=== PATIENT | female | born 1930 | race Caucasian/White ===

== ENCOUNTER 2016-12-25 02:51 | Emergency (ER) | payer OTHER ==
[2016-12-25 02:58] VITALS: BP 151/77; RESP 20; TEMP 97.6
[2016-12-25] MEDS ORDERED: ACET500C PO (03:15)
[2016-12-25] MEDS ORDERED: VITA200013 (03:17)
[2016-12-25] MEDS ORDERED: BUSP5TAB PO (03:17)
[2016-12-25] MEDS ORDERED: QUET1TAB7 PO (03:17)
[2016-12-25] MEDS ORDERED: AMLO2.5T PO (03:17)
[2016-12-25] MEDS ORDERED: TRAZ50TA12 PO (03:17)
[2016-12-25] MEDS ORDERED: LIDOCAINE HCL 1% PF 30 ML VIAL INFIL ONE (03:30)
--- NOTE | 2016-12-25 03:41 | PD ---
HPI Chief Complaint: Fall Time Seen by Provider: 03:27 Travel History International Travel<30 days: No Contact w/Intl Traveler<30days: No Traveled to known affect area: No History of Present Illness HPI 86-year-old female presents to the emergency department from [facility] [place] [facility] is caregiver status post witnessed fall just prior to arrival to the emergency department. Patient was reportedly in her apartment with her and had a slip and fall. There was reportedly no loss of consciousness. Caregiver at bedside and reports that they heard her fall and attended her immediately. Patient was noted to have a laceration to the posterior occiput scalp. Patient also complains of hand pain. Patient has deformity of the right elbow that has been present for a long time according to the caregiver. Review of medical records indicates patient was seen March 2016 for an elbow fracture. Patient takes no blood thinning medications reportedly. Patient has history of dementia and does not provide helpful history however patient does complain of headache and right hand pain and left knee pain. Patient denies chest pain, neck pain, abdominal pain, pelvic pain, or other extremity pain. Patient does report her right elbow has had chronic deformity. Pain is estimated as 5/10 in intensity. PFSH Past Medical History Narrative Medical Arthritis dementia diminished hearing hypertension appendectomy cholecystectomy hysterectomy back surgery no tobacco use no alcohol use nursing notes reviewed Arthritis: Yes Diminished Hearing: Yes ([place]) Headaches: Yes Immunizations Current: Yes Tetanus Vaccination: Unknown Influenza Vaccination: No ?: Not Menopausal: Yes Past Surgical History Appendectomy: Yes Cholecystectomy: Yes Gynecologic Surgery: Yes (HYSTERECTOMY) Hysterectomy: Yes Tonsillectomy: Yes Other Surgery: Yes (BACK SURGERY) Social History Alcohol Use: No Tobacco Use: No (quit long ago cigs) Substance Use: No Allergies-Medications (Allergen,Severity, Reaction): Coded Allergies: Sulfa (Verified Allergy, Unknown, 12/25/16) Reported Meds & Prescriptions Reported Meds & Active Scripts Active Pyridium (Phenazopyridine HCl) 100 Mg Tab 100 Mg PO Q8H PRN Macrobid (Nitrofurantoin Monoh/Nitrofur Macro) 100 Mg Cap 100 Mg PO BID 10 Days Reported Quetiapine (Quetiapine Fumarate) 25 Mg Tab 25 Mg PO BID Vitamin D (Cholecalciferol) 2,000 Unit Cap Trazodone (Trazodone HCl) 50 Mg Tab 50 Mg PO HS Buspirone (Buspirone HCl) 5 Mg Tab 5 Mg PO BID Amlodipine (Amlodipine Besylate) 2.5 Mg Tab 2.5 Mg PO DAILY Acetaminophen 500 Mg Cap 500 Mg PO DAILY PRN Review of Systems ROS Limitations: Poor Historian, Other: (caregiver) Except as stated in HPI: all other systems reviewed are Neg General / Constitutional: No: Fever Cardiovascular: No: Chest Pain or Discomfort Respiratory: No: Shortness of Breath Gastrointestinal: No: Abdominal Pain Genitourinary: No: Flank Pain Musculoskeletal: Positive: Pain (left knee pain earlier on Monday afternoon - - used wheelchair to assist with ambulation at that time per caregiver and right elbow deformity is a chronic condition and appears unchanged) Neurologic: No: Weakness Hematologic/Lymphatic: No: Easy Bruising Physical Exam Narrative GENERAL: Well-developed elderly female in no acute distress no respiratory distress appears mildly anxious. SKIN: Warm and dry. HEAD: Atraumatic. Normocephalic. Right posterior occiput 5 cm linear scalp laceration without soft tissue swelling or bony abnormality to palpation. EYES: Pupils equal and round. Extraocular muscles intact. No scleral icterus. No injection or drainage. ENT: No nasal bleeding or discharge. Mucous membranes pink and moist. NECK: Trachea midline. No JVD. Nontender to direct palpation along the bony cervical spine and no bony step-off. CARDIOVASCULAR: Regular rate and rhythm. Chest wall: Nontender to direct palpation no crepitus no point tenderness. RESPIRATORY: No accessory muscle use. Clear to auscultation. Breath sounds equal bilaterally. GASTROINTESTINAL: Abdomen soft, non-tender, nondistended. Hepatic and splenic margins not palpable. MUSCULOSKELETAL: Extremities without clubbing, cyanosis, or edema. No obvious deformities except obvious deformity of the right elbow reportedly old and non- tender to palpation or with range of motion limited at attempted end range of motion by deformity, bruising to the right hand subacute bruise to the left knee extremities demonstrate full range of motion except for right elbow secondary to chronic deformity distally radial and dorsalis pedis pulses are 2+ to palpation.. NEUROLOGICAL: Awake and alert. No obvious cranial nerve deficits. Motor grossly within normal limits. Five out of 5 muscle strength in the arms and legs. Normal speech. Data Data Last Documented VS Vital Signs Date Time Temp Pulse Resp B/P Pulse Ox O2 Delivery O2 Flow Rate FiO2 12/25/16 02:58 97.6 20 151/[address] Brain W/O Iv Contrast(Rout) (12/25/16 ) Ct Cerv Spine W/O Contrast (12/25/16 ) Hand, Complete ([id number]) (12/25/16 ) Elbow, Complete (4 Vws) (12/25/16 ) Lidocaine Pf 1% Inj (Xylocaine-Mpf 1% In (12/25/16 03:30) Knee, Complete (4vws) (12/25/16 ) Apply Cervical Collar (12/25/16 03:29) Urinalysis - C+S If Indicated (12/25/16 04:00) Cath For Specimen (12/25/16 04:00) Urine Culture (12/25/16 04:40) Ceftriaxone Inj (Rocephin Inj) (12/25/16 05:30) Labs Laboratory Tests Test 12/25/16 04:40 Urine Color YELLOW Urine Turbidity SLIGHT Urine pH 7.0 Urine Specific [place] 1.011 Urine Protein NEG mg/dL Urine Glucose (UA) NEG mg/dL Urine Ketones NEG mg/dL Urine Occult Blood TRACE Urine Nitrite NEG Urine Bilirubin NEG Urine Leukocyte Esterase SMALL Urine RBC 3-5 /hpf Urine WBC 25-49 /hpf Urine WBC Clumps FEW Urine Squamous Epithelial 0-5 /hpf Cells Urine Bacteria MANY /hpf Microscopic Urinalysis Comment CATH-CULTURE IND MDM Medical Decision Making Medical Screen Exam Complete: Yes Emergency Medical Condition: Yes Medical Record Reviewed: Yes Interpretation(s) CT brain: FINDINGS: There is moderate atrophy. No hemorrhage, acute infarct, or mass. Mild periventricular white matter disease and remote left basal ganglia lacunar infarct. No fractures. CONCLUSION: No acute disease. Carlos Loya MD on December 25, 2016 at 4:45 Board Certified Radiologist. This report was verified electronically. CT cerv spine : FINDINGS: Nelson see C3 on C4, C4 and C5 and C7 on T1 noted. There is severe multilevel degenerative disc disease greatest at C5-6, C6-7 and T1-2. There is moderate multilevel facet hypertrophy and bilateral carotid artery calcifications are noted. Prominent panus formation is seen posterior to the odontoid. CONCLUSION: Moderate to severe degenerative changes without evidence for acute fracture. Prominent partially calcified pannus formation posterior to the odontoid with mild abutment of the spinal cord noted. No canal stenosis at this level. Carlos Loya MD on December 25, 2016 at 4:51 Board Certified Radiologist. This report was verified electronically. 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 Degenerative changes of the thumb basal joint are present. No acute fracture or dislocation. CONCLUSION: No acute disease. Carlos Loya MD on December 25, 2016 at 4:34 Board Certified Radiologist. This report was verified electronically. R elbow xr: FINDINGS: There is a nonunited fracture deformity of the distal humeral metaphysis at the level of the condyles. There is patchy sclerosis and osteophytosis. Soft tissue swelling is noted. A superimposed acute fracture fragment is not excluded. CONCLUSION: Chronic-appearing nonunion distal humerus fracture, possibility of superimposed acute fracture not excluded. Soft tissue swelling is seen. Carlos Loya MD on December 25, 2016 at 4:36 Board Certified Radiologist. This report was verified electronically. 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 No effusion, fracture or or dislocation. Popliteal artery calcifications are seen. CONCLUSION: Degenerative changes without fracture or dislocation. Carlos Loya MD on December 25, 2016 at 4:37 Board Certified Radiologist. This report was verified electronically. UA: Positive leukocyte Estrace positive white blood cells clumped white blood cells and many bacteria for catheter specimen culture is indicated Differential Diagnosis Minor CHI, scalp laceration, skull fracture, ICH, cervical spine sprain strain fracture, hand/knee contusion sprain strain fracture Narrative Course Cervical collar applied wound site cleansed lidocaine ordered for laceration repair; imaging studies ordered Imaging studies performed which reveals no acute abnormality for CT brain noncontrast CT cervical spine noncontrast left knee x-ray and right hand x-ray however evidence of previous nonunion fracture of the distal right humerus with soft tissue swelling and radiologist unable to exclude acute fracture as well however a she demonstrates no point tenderness or increased pain with reexamination or palpation therefore suspect that changes are all chronic but patient will be provided sling and encouraged to follow-up with orthopedist. Patient identified also to have catheter specimen urine collection which is consistent with abnormal urinalysis concerning for acute UTI and patient administered first dose of antibiotic in the emergency department. 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, right UTI (urinary tract infection) Qualified Code: N30.00 - Acute cystitis without hematuria Referrals: Orthopedist call for appointment Primary Care Physician 2 days Patient Instructions: General Instructions Additional Instructions: Follow head injury precautions 24 hours Follow-up with orthopedist regarding right elbow injury Follow-up with primary care physician for follow up regarding urine infection and for orthopedic referral Complete course of antibiotic as prescribed Wear sling to right upper extremity May use acetaminophen/Tylenol as often as every 4-6 hours as needed for minor pain or for fever 100.4F or greater Return to the emergency for for any concerns or change in condition Use cane or walker to assist ambulation apply ice intermittently for first 12-24 hours to scalp and right elbow to assist with pain associated with swelling and inflammation Med/Other Pt SpecificInfo: Prescription(s) given Scripts Phenazopyridine (Pyridium)100 Mg [id number] Mg PO Q8H PRN (DYSURIA) #6 TAB Ref 0 Prov:Maddie Pittman MD 12/25/16 Nitrofurantoin Monohydrate Macrocrystals (Macrobid)100 Mg [id number] Mg PO BID 10 Days Ref 0 Prov:Maddie Pittman MD 12/25/16 Disposition: 01 DISCHARGE HOME Condition: Stable Maddie Pittman MD Dec 25, 2016 03:41
--- NOTE | 2016-12-25 04:36 | RADHPO ---
EXAM DATE/TIME: 12/25/2016 03:53 [facility] COMPARISON: HAND RIGHT COMPLETE ([id number]), April 04, 2016, 12:18. INDICATIONS : Right hand pain post fall. MEDICAL HISTORY : Arthritis. SURGICAL HISTORY : Appendectomy. Cholecystectomy. Hysterectomy. 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 Degenerati ve changes of the thumb basal joint are present. No acute fracture or dislocation. CONCLUSION: No acute disease. Carlos Loya MD on December 25, 2016 at 4:34 Board Certified Radiologist. This report was verified electronically.
--- NOTE | 2016-12-25 04:39 | RADHPO ---
EXAM DATE/TIME: 12/25/2016 04:11 [facility] COMPARISON: No previous studies available for comparison. INDICATIONS : Left knee pain post fall. MEDICAL HISTORY : Arthritis. SURGICAL HISTORY : Tonsillectomy. Cholecystectomy. Appendectomy. 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 No effusion, fracture or or dislocation. Popliteal artery calcificatio ns are seen. CONCLUSION: Degenerative changes without fracture or dislocation. Carlos Loya MD on December 25, 2016 at 4:37 Board Certified Radiologist. This report was verified electronically.
--- NOTE | 2016-12-25 04:39 | RADHPO ---
EXAM DATE/TIME: 12/25/2016 04:07 [facility] COMPARISON: ELBOW RIGHT COMPLETE (4 VWS), April 18, 2016, 11:05. INDICATIONS : Right elbow pain with swelling post fall. MEDICAL HISTORY : Arthritis. SURGICAL HISTORY : Appendectomy. Cholecystectomy. Tonsillectomy. Hysterectomy ENCOUNTER: Initial ACUITY: 1 day PAIN SCORE: 10/10 LOCATION: Right upper extremity FINDINGS: There is a nonunited fracture deformity of the distal humeral metaphysis at the level of the condyles . There is patchy sclerosis and osteophytosis. Soft tissue swelling is noted. A superimposed acute fr acture fragment is not excluded. CONCLUSION: Chronic-appearing nonunion distal humerus fracture, possibility of superimposed acute fracture not ex cluded. Soft tissue swelling is seen. Carlos Loya MD on December 25, 2016 at 4:36 Board Certified Radiologist. This report was verified electronically.
--- NOTE | 2016-12-25 04:47 | RADHPO ---
EXAM DATE/TIME: 12/25/2016 04:19 [facility] COMPARISON: CT BRAIN W/O CONTRAST, April 04, 2016, 13:06. INDICATIONS : Fall. Posterior head trauma. RADIATION DOSE: 61.79 CTDIvol (mGy) MEDICAL HISTORY : None SURGICAL HISTORY : None. ENCOUNTER: Initial ACUITY: 1 day PAIN SCALE: 7/10 LOCATION: cranial TECHNIQUE: Multiple contiguous axial images were obtained of the head. Using automated exposure control and adj ustment of the mA and/or kV according to patient size, radiation dose was kept as low as reasonably a chievable to obtain optimal diagnostic quality images. FINDINGS: There is moderate atrophy. No hemorrhage, acute infarct, or mass. Mild periventricular white matter d isease and remote left basal ganglia lacunar infarct. No fractures. CONCLUSION: No acute disease. Carlos Loya MD on December 25, 2016 at 4:45 Board Certified Radiologist. This report was verified electronically.
[2016-12-25 04:50] LABS: BLOOD, URINE TRACE (NEG); GLUCOSE,URINE NEG (NEG); KETONE, URINE NEG (NEG); NITRITE,URINE NEG (NEG)
[2016-12-25 04:55] LABS: URINE COLOR YELLOW (YELLW/STRAW)
[2016-12-25 04:56] LABS: BACTERIA, URINE MANY /hpf; COMMENT (UR) CATH-CULTURE IND; CULTURE IF INDICATED CATH CULTURE IND; SQUAMOUS EPITHELIAL CELL URINE 0-5 /hpf (0-5)
--- NOTE | 2016-12-25 04:56 | RADHPO ---
EXAM DATE/TIME: 12/25/2016 04:19 [facility] COMPARISON: CT BRAIN W/O CONTRAST, December 25, 2016, 4:19. INDICATIONS : Fall. Posterior neck trauma. RADIATION DOSE: 24.82 CTDIvol (mGy) MEDICAL HISTORY : None SURGICAL HISTORY : Tonsillectomy. ENCOUNTER: Initial ACUITY: 1 day PAIN SCALE: 7/10 LOCATION: neck TECHNIQUE: Volumetric scanning of the cervical spine was performed. Multiplanar reconstructions in the sagittal, coronal and oblique axial planes were performed. Using automated exposure control and adjustment o f the mA and/or kV according to patient size, radiation dose was kept as low as reasonably achievable to obtain optimal diagnostic quality images. FINDINGS: Nelson see C3 on C4, C4 and C5 and C7 on T1 noted. There is severe multilevel degenerative disc disease greatest at C5-6, C6-7 and T1-2. There is moderate multilevel facet hypertrophy and bilateral caroti d artery calcifications are noted. Prominent panus formation is seen posterior to the odontoid. CONCLUSION: Moderate to severe degenerative changes without evidence for acute fracture. Prominent partially calc ified pannus formation posterior to the odontoid with mild abutment of the spinal cord noted. No narcisa l stenosis at this level. Carlos Loya MD on December 25, 2016 at 4:51 Board Certified Radiologist. This report was verified electronically.
[2016-12-25] MEDS ORDERED: cefTRIAXone INJ 1,000 MG in SODIUM CHLORIDE 0.9% INJ 100 ML IV ONE (05:30)
[2016-12-25] MEDS ORDERED: MACR100C2 PO (05:45)
[2016-12-25] MEDS ORDERED: PHEN0.4T PO (05:45)
[2016-12-25 05:58] VITALS: BP 167/76; PULSE 70; RESP 16; O2SAT 98
[2016-12-25] MEDS ORDERED: TETANUS/DIPHTHERIA TOXOID ADULT 0.5 ML VIAL IM ONE (06:15)
== END 2016-12-25 07:43 | disposition home or self-care (01) ==
LOC: PHED 02:51
DX: S01.01XA Laceration without foreign body of scalp, initial encounter (principal); S42.401K Unspecified fracture of lower end of right humerus, subsequent encounter for fracture with nonunion; N30.00 Acute cystitis without hematuria; B96.1 Klebsiella pneumoniae [K. pneumoniae] as the cause of diseases classified elsewhere; M79.641 Pain in right hand; W01.0XXA Fall on same level from slipping, tripping and stumbling without subsequent striking against object, initial encounter; Y92.039 Unspecified place in apartment as the place of occurrence of the external cause; Z23 Encounter for immunization
CPT/HCPCS: 12002; 70450; 72125; 73080; 73130; 73564; 81001; 87077; 87086; 87186; 90471; 90714; 96365; 99284; J0696; P9612